=== PATIENT | female | born 1975 | race Two or more races ===

== ENCOUNTER → 2016-04-20 09:35 | Outpatient (CLI) | payer MEDICAID | END | disposition home or self-care (01) | LOC: D.US 09:30 | DX: R22.2 Localized swelling, mass and lump, trunk (principal) ==

== ENCOUNTER 2020-06-02 13:46 | Outpatient (CLI) | payer BC | END 2020-06-02 23:59 | disposition home or self-care (01) | LOC: D.MAMMO 13:46 | PROVIDERS: ATTEND Nurse Practitioner Family | DX: Z12.31 Encounter for screening mammogram for malignant neoplasm of breast (principal) ==

== ENCOUNTER → 2020-06-16 09:43 | Outpatient (CLI) | payer BC | END | disposition home or self-care (01) | LOC: D.US 09:30 | PROVIDERS: ATTEND Nurse Practitioner Family | DX: R92.8 Other abnormal and inconclusive findings on diagnostic imaging of breast (principal) ==